=== PATIENT | female | born 1950 | race Caucasian/White ===

== ENCOUNTER → 2016-03-19 | Outpatient (CLI) | payer BC ==
--- NOTE | ~2016-03-19 | S ---
[facility] [place] [address] SURGICAL PATH RPT PROCEDURE Name: ZAIRE DURAN Room #: REG [facility].#: [id number] Admission: 03/19/16 Date of : 50 Discharge: Report #: [id number] Path Case #: [id number] PATHOLOGY REPORT COLLECTION DATE: 03/19/2016 RECEIVED DATE: 03/19/2016 SUBMITTING PHYS: Dr. Anny Pichardo OTHER PHYS: Dr. Rl Bradley SPECIMEN(S) RECEIVED: A.Left isthmus biopsy B.Rt isthmus biopsy * * * * * * * * * * * * FINAL DIAGNOSIS: A. Thyroid, Left isthmus, needle core biopsy: - FOLLICULAR LESION OF UNDETERMINED SIGNIFICANCE SHOWING HURTHLE CELL FEATURES AND PSEUDOINCLUSIONS. - Background of marked chronic lymphocytic thyroiditis. B. Thyroid, Right isthmus, needle core biopsy: - FOLLICULAR LESION OF UNDETERMINED SIGNIFICANCE SHOWING MICROFOLLICLES AND PSEUDOINCLUSIONS. COMMENT: The concurrent cytology SJN 17-4 showed similar changes. Please see separate report. Findings are suspicious for a neoplastic process with pseudoinclusions. The differential diagnosis includes papillary thyroid carcinoma. 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 Correlate clinically and follow-up as indicated. (IUV; 03/20/16) PATHOLOGIST: Amy Brown M.D. REPORT ELECTRONICALLY SIGNED BY: Amy Brown M.D. DATE/TIME: 03/20/2016 16:03 * * * * * * * * * * * * GROSS PATHOLOGY: A. Received in formalin labeled "Zaire Duran, left mid," and additionally labeled on the requisition as, "left isthmus biopsy". Received are two distinct needle cores of brown soft tissue ranging from 0.6 to 0.8 cm in length, which are submitted entirely in cassette A1. B. Received in formalin labeled "Zaire Duran, right isthmus," are two distinct needle cores of brown soft tissue ranging from 0.[address] [address] SURGICAL PATH RPT PROCEDURE Name: ZAIRE DURAN Room #: REG [facility] M..#: [id number] Admission: 03/19/16 Date of : 50 Discharge: Report #: [id number] Path Case #: [id number] cm in length, which are submitted entirely in cassette B1. (CAA; 03/19/2016) CLINICAL HISTORY: Bilateral thyroid nodules INITIAL CPT CODE(S): A; 45814 B; 96643 Professional services performed by [facility] at [address] , [place] [address] Technical services performed by [facility] at [address] [place] [address], [facility] [address] [address]. [facility] [address] [place] [address] PHONE: [phone] DIRECTOR: Francisco Gallo M.D. * * * END OF REPORT * * *
--- NOTE | ~2016-03-19 | CNG ---
[facility] [place] [address] CYTO-NONGYN REPORT PROCEDURE Name: ZAIRE DURAN Room #: REG [facility].#: [id number] Admission: 03/19/16 Date of : 50 Discharge: Report #: [id number] Path Case #: [id number] CYTOPATHOLOGY REPORT COLLECTION DATE: 03/19/2016 RECEIVED DATE: 03/19/2016 SUBMITTING PHYS: Dr. Rl Bradley OTHER PHYS: Dr. Anny Pichardo CLINICAL HISTORY: Multi thyroid nodules. See also SJS17-8. SPECIMEN(S) RECEIVED: A.US guded Fine needle aspiration,Left Isthmus B.US guided Fine needle aspiration, Right Isthmus * * * * * * * * * * * * FINAL DIAGNOSIS: A. Thyroid, left isthmus, ultrasound guided fine needle aspiration: BETHESDA CATEGORY III. ATYPIA OF UNDETERMINED SIGNIFICANCE. Groups of atypical thyroid follicular cells with Hurthle cell features and a few pseudo-inclusions, rare lymphoid tangles, and dense colloid identified. B. Thyroid, right Isthmus, ultrasound guided fine needle aspiration: BETHESDA CATEGORY III. ATYPIA OF UNDETERMINED SIGNIFICANCE. Groups of atypical thyroid follicular cells with a few pseudo-inclusions, few with Hurthle cell features, along with dense colloid identified. COMMENT: A. Examination shows groups of thyroid follicular cells in mostly microfollicles, as well as showing Hurthle cell features. Occasional lymphoid tangles are identified in the background. Findings may be suggestive of chronic lymphocytic thyroiditis associated with Hurthle cell features. A partially sampled Hurthle cell adenoma cannot be excluded. Few pseudoinclusions are present raising concern for a neoplastic process. B. Examination shows markedly cellular aspirate with macro as well as micro follicles showing occasional pseudoinclusions as well as nuclear overlapping. Nuclear clearing is not identified. The findings raise concern for a follicular adenoma with reactive changes, Hurthle cell adenoma with reactive changes, or a papillary thyroid carcinoma. Please note sample represents a minute portion of a larger lesion and may not be accounting representative. The concurrent biopsy tissue (SJS17-8) showed marked chronic lymphocytic thyroiditis in the left isthmus biopsy and features suspicious for a partially sampled neoplasm with pseudoinclusions in both the left as well as right isthmus biopsy. Please see separate [address] [address] CYTO-NONGYN REPORT PROCEDURE Name: ZAIRE DURAN [id number] Admission: 03/19/16 Date of : 50 Discharge: Report #: [id number] Path Case #: [id number] report for complete details. Co-review: Dr. Madhavi Padron (IUV:all; d/t: 03/20/2016) PATHOLOGIST: Amy Brown M.D. REPORT ELECTRONICALLY SIGNED BY: Amy Brown M.D. DATE/TIME: 03/20/2016 16:04 * * * * * * * * * * * * GROSS PATHOLOGY: A. US guded Fine needle aspiration,Left Isthmus: The specimen is labeled "Zaire Duran" and consists of four air dried slides, four fixed slides. Two mL of red fluid unfixed from the needle rinse is also submitted and One ThinPrep slide was prepared from this material. B. US guided Fine needle aspiration, Right Isthmus: The specimen is labeled "Zaire Duran" and consists of four air dried slides, four fixed slides. Four mL of clear fluid unfixed from the needle rinse is also submitted and One ThinPrep slide was prepared from this material. (clt 03.19.2016) BOTTOM PRECIPITATOR OPERATOR(S): TAI Schrader(ASCP) INITIAL CPT CODE(S): A; 70824 B; 06933 Professional services performed by [facility] at [facility] [address], [place] [address] Technical services performed by [facility] at [address] [place] [address], [address], [place] [address]. [facility] [address] [place] [address], [address] [place] [address] PHONE: [phone] DIRECTOR: Francisco Gallo M.D. * * * END OF REPORT * * *
== END | disposition home or self-care (01) ==
LOC: ULTRA 10:36
DX: E04.2 Nontoxic multinodular goiter (principal)